=== PATIENT | male | born 1960 | race Caucasian/White ===

== ENCOUNTER 2023-04-06 13:15 | Emergency (ER) | payer OTHER, BC ==
[2023-04-06] MEDS ORDERED: Lidocaine 2% 20 ML MDV INFILT ONE (13:16)
== END 2023-04-06 15:00 | disposition home or self-care (01) ==
LOC: FB.ED 13:15
DX: S68.612A Complete traumatic transphalangeal amputation of right middle finger, initial encounter (principal); I10 Essential (primary) hypertension; E11.9 Type 2 diabetes mellitus without complications; Z79.84 Long term (current) use of oral hypoglycemic drugs; Z79.899 Other long term (current) drug therapy; Z79.01 Long term (current) use of anticoagulants; Z79.82 Long term (current) use of aspirin; W27.0XXA Contact with workbench tool, initial encounter
CPT/HCPCS: 12001; 73130-RT; 99283

== ENCOUNTER 2025-02-21 10:47 | Emergency (ER) | payer OTHER, BC ==
[2025-02-21] MEDS ORDERED: Sodium Chloride 0.9% 10 ML Syringe FLUSH PRN (11:22)
[2025-02-21 11:32] LABS: BASOPHILS ABSOLUTE AUTO 0.1 x10-3/uL (0.0-0.3); BASOPHILS PERCENT AUTO 0.6 % (0.3-3.8); EOSINOPHILS ABSOLUTE AUTO 0.1 x10-3/uL (0.0-0.6); EOSINOPHILS PERCENT AUTO 1.3 % (0.1-6.8); LYMPHOCYTES ABSOLUTE AUTO 1.3 x10-3/uL (0.5-4.5); LYMPHOCYTES PERCENT AUTO 14.7 % (15.8-45.3); MEAN PLATELET VOLUME 9.5 fL (6.7-11.0); MONOCYTES ABSOLUTE AUTO 0.6 x10-3/uL (0.0-1.2); MONOCYTES PERCENT AUTO 7.5 % (5.5-15.2); NEUTROPHILS ABSOLUTE AUTO 6.5 x10-3/uL (1.7-6.9); NEUTROPHILS PERCENT AUTO 75.9 % (40.3-71.8); PLATELET COUNT,PLT 243 x10(3)uL (117-477); RED CELL DISTRIBUTION WIDTH 16.7 % (12.4-15.0); WHITE BLOOD CELL COUNT,WBC 8.6 x10-3/uL (3.2-10.1)
[2025-02-21 11:45] LABS: RED BLOOD CELL COUNT 5.05 x10(6)uL (3.90-5.90)
[2025-02-21 11:46] LABS: A/G RATIO 1.1; ALANINE AMINOTRANSFERASE,ALT 91 U/L (12-36); ASPARTATE AMNIOTRANSFERASE,AST 80 IU/L (5-25); BILIRUBIN TOTAL 1.0 mg/dL (0.1-1.3); BLOOD UREA NITROGEN,BUN 32 mg/dL (7-18); CARBON DIOXIDE,CO2 23 mmol/L (21-32); CHLORIDE,CL 102 mmol/L (100-110); CREATININE 1.9 mg/dL (0.70-1.30); ESTIMATED GFR 38 mL/min (>60); GLUCOSE RANDOM 170 mg/dL (80-116); POTASSIUM,K 5.6 mmol/L (3.5-5.3); PROTEIN TOTAL,TP 7.0 g/dL (6.0-8.0); SODIUM,NA 136 mmol/L (135-145)
[2025-02-21 11:50] LABS: INR 2.37 (1.00-1.24)
== END 2025-02-21 15:48 | disposition other institution (70) ==
LOC: FB.ED 10:47
DX: I51.3 Intracardiac thrombosis, not elsewhere classified (principal); I10 Essential (primary) hypertension; E11.9 Type 2 diabetes mellitus without complications; Z95.1 Presence of aortocoronary bypass graft; Z79.82 Long term (current) use of aspirin; Z79.01 Long term (current) use of anticoagulants; Z79.899 Other long term (current) drug therapy; Z79.84 Long term (current) use of oral hypoglycemic drugs
CPT/HCPCS: 36415; 80053; 84484; 85025; 85379; 85610; 93005; 99285; J7030